=== PATIENT | female | born 1980 | race African-American/Black ===

== ENCOUNTER 2017-07-02 00:42 | Emergency (ER) | payer MEDICAID ==
--- NOTE | 2017-07-02 02:53 | ER Document Report ---
ED General - General Chief Complaint: Ear Pain Stated Complaint: WEAKNESS,SHORTNESS OF BREATH Time Seen by Provider: 07/02/17 02:41 Notes: Patient is a 36-year-old female who presents with complaint of 1 week of body aches, chills, sweats. She says she has felt weak. She also has had some pain beneath both shoulder blades. No pain into her abdomen. No pain into her chest. No vomiting. No diarrhea. Patient also complains that yesterday she had some lumps behind her ears. These have since improved. No sore throat. No runny nose cough or congestion. She does not remember any recent tick bites. No dysuria. No other complaints at this time. TRAVEL OUTSIDE OF THE [place] IN LAST 30 DAYS: No - Related Data Allergies/Adverse Reactions: No Known Allergies Allergy (Verified 07/02/17 01:11) Past Medical History - Social History Smoking Status: Never Smoker Frequency of alcohol use: None Drug Abuse: None Family History: CAD, DM, Hypertension - Past Medical History Cardiac Medical History: Reports: Hx Hypertension Renal/ Medical History: Denies: Hx Peritoneal Dialysis Past Surgical History: Reports: Hx Orthopedic Surgery - Immunizations Hx Diphtheria, Pertussis, Tetanus Vaccination: Yes Review of Systems - Review of Systems Notes: My Normal Review Basic REVIEW OF SYSTEMS: CONSTITUTIONAL : subjective fevers. EENT: Denies eye, ear, throat, or mouth pain or symptoms. Denies nasal or sinus congestion. CARDIOVASCULAR: Denies chest pain. RESPIRATORY: Denies cough, cold, or chest congestion. Denies shortness of breath, difficulty breathing, or wheezing. GASTROINTESTINAL: Denies abdominal pain. Denies nausea, vomiting, or diarrhea. Denies constipation. Last BM: GENITOURINARY: Denies difficulty urinating, painful urination, burning, frequency, or blood in urine. MUSCULOSKELETAL: Body aches SKIN: Denies rash or skin lesions. NEUROLOGICAL: Denies altered mental status or loss of consciousness. Denies headache. Denies weakness or paralysis or loss of use of either side. Denies problems with gait or speech. Denies sensory or motor loss. ALL OTHER SYSTEMS REVIEWED AND NEGATIVE. Physical Exam - Vital signs Vitals: Temp Pulse Resp BP Pulse Ox 98.7 F 78 20 132/95 H 96 07/02/17 01:11 07/02/17 01:11 07/02/17 01:11 07/02/17 01:11 07/02/17 01:11 - Notes Notes: General Appearance: Well nourished, alert, cooperative, no acute distress, no obvious discomfort. Well-appearing. Vitals: reviewed, See vital signs table. Head: no swelling or tenderness to the head Eyes: PERRL, EOMI, Conjuctiva clear Mouth: No decreasd moisture Throat: No tonsillar inflammation, No airway obstruction, No lymphadenopathy Ears: Normal-appearing tympanic membranes bilaterally. Small amount of lymphadenopathy behind left ear. Neck: Supple, no neck tenderness, No thyromegaly Lungs: No wheezing, No rales, No rhonci, No accessory muscle use, good air exchange bilaterally. Heart: Normal rate, Regular rythm, No murmur, no rub Back: Minimal pain to palpation below the left scapula. Remainder of back is nontender. No rashes. Abdomen: Normal BS, soft, No rigidity, No abdominal tenderness, No guarding, no rebound, no abdominal masses, no organomegaly Extremities: strength 5/5 in all extremities, good pulses in all extremities, no swelling or tenderness in the extremities, no edema. Skin: warm, dry, appropriate color, no rash Neuro: speech clear, oriented x 3, normal affect, responds appropriately to questions. Course - Re-evaluation Re-evalutation: 07/02/17 06:30 I do not know the exact cause of the patient's symptoms. She does have like symptoms without any exact cause in the middle of summer. I will place her on doxycycline in case there is underlying recommended spotted fever. Titers have been sent out. I informed her of this and gave her the culture callback number to find out her results. Encouraged her return to ER if she has worsening or symptoms, high fevers, vomiting, or she feels unwell. Patient agrees with plan will be discharged home. Dictation of this chart was performed using voice recognition software; therefore, there may be some unintended grammatical errors. - Vital Signs Vital signs: Temp Pulse Resp BP Pulse Ox 98.7 F 89 18 131/84 H 98 07/02/17 01:11 07/02/17 04:36 07/02/17 04:36 07/02/17 04:36 07/02/17 04:36 - Laboratory Laboratory results interpreted by me: 07/02/17 03:30 Urine Protein 100 H Urine Blood SMALL H Urine Ascorbic Acid 20 H Discharge - Discharge Clinical Impression: Flu-like symptoms Condition: Good Disposition: HOME, SELF-CARE Additional Instructions: We are starting you on an antibiotic. The antibiotic is called Doxycyline. Please take it with food so it doesn't irritate your stomach. Please follow up with a doctor in 3 days for reevaluation. Please do not go out into the sun often as the antibiotic can make your skin very sensitive to the skin. You Rayne Spotted Fever test results typically take 2-3 days to call back. please call [phone] for the results. Return to the ER immediately if you have worsening pain, fevers, vomiting, or feel unwell. Prescriptions: Doxycycline Hyclate 100 mg PO BID #14 capsule
[2017-07-02 03:50] LABS: APPEARANCE,URINE SLIGHTLY-CLOUDY; BILIRUBIN,URINE NEGATIVE (NEGATIVE); GLUCOSE, URINE NEGATIVE (NEGATIVE); KETONES,URINE NEGATIVE (NEGATIVE); LEUKOCYTE ESTERASE,URINE NEGATIVE (NEGATIVE); NITRITE,URINE NEGATIVE (NEGATIVE); PROTEIN,URINE 100 mg/dL (NEGATIVE); URINE SPECIFIC GRAVITY 1.039; UROBILINOGEN,URINE NEGATIVE mg/dL (<2.0)
[2017-07-02 04:37] VITALS: BP 131/84
[2017-07-04 10:04] LABS: ROCKY MTN SPOTTED FEV IGG EIA Negative (Negative)
== END 2017-07-02 04:36 | disposition home or self-care (01) ==
LOC: ER 00:42
DX: R68.83 Chills (without fever) (principal); R61 Generalized hyperhidrosis; R53.1 Weakness; M54.89 Other dorsalgia; R59.0 Localized enlarged lymph nodes; I10 Essential (primary) hypertension
CPT/HCPCS: 36415; 81001; 81025; 86757; 99283

== ENCOUNTER 2018-11-30 11:19 | Emergency (ER) | payer MEDICAID ==
--- NOTE | 2018-11-30 11:45 | ER Document Report ---
ED Medical Screen (RME) - General Chief Complaint: Headache Stated Complaint: HEADACHE Time Seen by Provider: 11/30/18 11:44 Mode of Arrival: Ambulatory Information source: Patient Notes: This is a 38-year-old female that presents to the emergency room with sharp stabbing headache for the past month associated with feeling off balance. Patient denies any fever, chills, neck stiffness. She denies any recent illnesses. She denies any focal motor weakness. She is on no medicines and no allergies to medicines. TRAVEL OUTSIDE OF THE [place] IN LAST 30 DAYS: No - Related Data Allergies/Adverse Reactions: No Known Allergies Allergy (Verified 11/30/18 11:20) Past Medical History - Social History Chew tobacco use (# tins/day): No Frequency of alcohol use: Occasional Drug Abuse: None - Past Medical History Cardiac Medical History: Reports: Hx Hypertension Renal/ Medical History: Denies: Hx Peritoneal Dialysis Past Surgical History: Reports: Hx Orthopedic Surgery - Immunizations Hx Diphtheria, Pertussis, Tetanus Vaccination: Yes Physical Exam - Vital signs Vitals: Temp Pulse Resp BP Pulse Ox 98.2 F 73 20 141/83 H 97 11/30/18 11:37 11/30/18 11:37 11/30/18 11:37 11/30/18 11:37 11/30/18 11:37 Course - Vital Signs Vital signs: Temp Pulse Resp BP Pulse Ox 98.2 F 73 20 141/83 H 97 11/30/18 11:37 11/30/18 11:37 11/30/18 11:37 11/30/18 11:37 11/30/18 11:37
[2018-11-30 12:01] LABS: ABSOLUTE EOSINOPHILS # (AUTO) 0.1 10^3/uL (0.0-0.6); ABSOLUTE LYMPHOCYTES (AUTO) 1.5 10^3/uL (0.5-4.7); ABSOLUTE MONOCYTES (AUTO) 0.5 10^3/uL (0.1-1.4); ABSOLUTE NEUT (AUTO) 2.5 10^3/uL (1.7-8.2); BASOPHILS % (AUTO) 0.7 % (0-2); EOSINOPHILS % (AUTO) 1.8 % (0-6); HEMATOCRIT 39.3 % (36.0-47.0); HEMOGLOBIN 13.1 g/dL (12.0-15.5); LYMPHOCYTES % (AUTO) 33.3 % (13-45); MEAN CORPUSCULAR HEMOGLOBIN 27.3 pg (27.0-33.4); MEAN CORPUSCULAR HGB CONC 33.3 g/dL (32.0-36.0); MEAN CORPUSCULAR VOLUME 82 fl (80-97); MONOCYTES % (AUTO) 9.8 % (3-13); PLATELET COUNT 292 10^3/uL (150-450); SEGMENTED NEUTROPHILS % (AUTO) 54.4 % (42-78); TOTAL CELLS COUNTED % (AUTO) 100 %; WHITE BLOOD COUNT 4.6 10^3/uL (4.0-10.5)
--- NOTE | 2018-11-30 12:29 | RADIOLOGY REPORT (SQ) ---
EXAM DESCRIPTION: CT HEAD WITHOUT COMPLETED DATE/TIME: 11/30/2018 12:15 pm REASON FOR STUDY: loredo COMPARISON: None. TECHNIQUE: Axial images acquired through the brain without intravenous contrast. Images reviewed wi th bone, brain and subdural windows. Additional sagittal and coronal reconstructions were generated. Images stored on PACS. All CT scanners at this facility use dose modulation, iterative reconstruction, and/or weight based d osing when appropriate to reduce radiation dose to as low as reasonably achievable (ALARA). [facility]: Dose Right [facility]: CareDose [facility]: Dose Right [facility]: Teradose 4D [facility]: Anda RADIATION DOSE: CT Rad equipment meets quality standard of care and radiation dose reduction techniq ues were employed. CTDIvol: 53.2 mGy. DLP: 1017 mGy-cm. LIMITATIONS: None. FINDINGS: VENTRICLES: Normal size and contour. The cisterns are patent appear CEREBRUM: No masses. No hemorrhage. No midline shift. No evidence for acute infarction. Normal gra y/white matter differentiation. No areas of low density in the white matter. CEREBELLUM: No masses. No hemorrhage. No alteration of density. No evidence for acute infarction. EXTRAAXIAL SPACES: No fluid collections. No masses. ORBITS AND GLOBE: No intra- or extraconal masses. Normal contour of globe without masses. CALVARIUM: No fracture. PARANASAL SINUSES: No fluid or mucosal thickening. SOFT TISSUES: No mass or hematoma. OTHER: Prominent adenoidal tissue. IMPRESSION: 1. No acute intracranial abnormality. 2. Additional imaging may be helpful if symptoms are persistent and felt clinically indicated. 3. Prominent adenoidal tissue. EVIDENCE OF ACUTE STROKE: NO. COMMENT: Quality ID # [id number]: Final reports with documentation of one or more dose reduction techniques (e.g., Automated exposure control, adjustment of the mA and/or kV according to patient size, use of iterative reconstruction technique) TECHNICAL DOCUMENTATION: JOB ID: [id number] [employer]- All Rights Reserved Reading location - IP/workstation name: [email or web address]
[2018-11-30 12:30] LABS: ALANINE AMINOTRANSFERASE 35 U/L (9-52); ALBUMIN 3.7 g/dL (3.5-5.0); ALKALINE PHOSPHATASE 71 U/L (38-126); ANION GAP 5 (5-19); ASPARTATE AMINO TRANSFERASE 20 U/L (14-36); BILIRUBIN,DIRECT 0.1 mg/dL (0.0-0.4); BILIRUBIN,TOTAL 0.3 mg/dL (0.2-1.3); BLOOD UREA NITROGEN 9 mg/dL (7-20); CALCIUM 9.1 mg/dL (8.4-10.2); CARBON DIOXIDE 30 mmol/L (22-30); CHLORIDE 104 mmol/L (98-107); GLUCOSE 109 mg/dL (75-110); POTASSIUM 4.1 mmol/L (3.6-5.0); SODIUM 138.9 mmol/L (137-145); TOTAL PROTEIN 6.6 g/dL (6.3-8.2)
[2018-11-30] MEDS ORDERED: PROCHLORPERAZINE EDISYLATE INJ 10 MG/2 ML VIAL IV ONE (14:47)
[2018-11-30] MEDS ORDERED: KETOROLAC TROMETHAMINE INJ/PF 30 MG/1 ML SDV IV ONE (14:47)
[2018-11-30] MEDS ORDERED: DIPHENHYDRAMINE HCL 50 MG/ML VIAL IV ONE (14:47)
--- NOTE | 2018-11-30 14:50 | ER Document Report ---
ED General - General Chief Complaint: Headache Stated Complaint: HEADACHE Time Seen by Provider: 11/30/18 11:44 Primary Care Provider: FLO JUSTICE DO [Primary Care Provider] - Follow up as needed Mode of Arrival: Ambulatory TRAVEL OUTSIDE OF THE [place] IN LAST 30 DAYS: No - HPI Notes: Patient is a 38-year-old female with a past medical history who presents to the emergency department complaining of right-sided headache intermittently over the last month. Patient states that it feels like a tightness and a pulling sensation to the right side of her head. Patient does not recall any injury precipitating her headache initially. She is able to eat and drink without difficulties. She is urinating normally and having normal bowel movements. Pat ient states that on occasion she will have dizziness associated primarily with movement of her head. Patient states that her headache has improved throughout her stay, but is still lingering. Denies any fever, head injury, neck pain, changes in vision/speech/mentation/hearing, URI, sore throat, chest pain, palpitations, syncope, cough, shortness of breath, wheeze, dyspnea, abdominal pain, nausea/vomiting/diarrhea, urinary retention, dysuria, hematuria, loss of control of bowel or bladder, numbness/tingling, muscle paralysis/weakness, or rash. - Related Data Allergies/Adverse Reactions: No Known Allergies Allergy (Verified 11/30/18 11:20) Past Medical History - General Information source: Patient - Social History Smoking Status: Current Every Day Smoker Chew tobacco use (# tins/day): No Frequency of alcohol use: Occasional Drug Abuse: None Family History: CAD, DM, Hypertension Patient has suicidal ideation: No Patient has homicidal ideation: No - Past Medical History Cardiac Medical History: Reports: Hx Hypertension Renal/ Medical History: Denies: Hx Peritoneal Dialysis Past Surgical History: Reports: Hx Orthopedic Surgery - Immunizations Hx Diphtheria, Pertussis, Tetanus Vaccination: Yes Review of Systems - Review of Systems -: Yes All other systems reviewed and negative Physical Exam - Vital signs Vitals: Temp Pulse Resp BP Pulse Ox 98.2 F 73 20 141/83 H 97 11/30/18 11:37 11/30/18 11:37 11/30/18 11:37 11/30/18 11:37 11/30/18 11:37 - Notes Notes: PHYSICAL EXAMINATION: GENERAL: Well-appearing, well-nourished and in no acute distress. A&Ox4. Answers questions appropriately. HEAD: Atraumatic, normocephalic. Non-tender. EYES: Pupils equal round and reactive to light, extraocular movements intact, sclera anicteric, conjunctiva are normal. No nystagmus. vis crook intact. ENT: EAC clear b/l. TM's intact b/l without erythema, fluid, or perforation. Nares patent and without discharge. oropharynx clear without exudates. No to nsilar hypertrophy or erythema. Moist mucous membranes. No sinus tenderness. NECK: Normal range of motion, supple without lymphadenopathy. No rigidity/meningismus. No midline tenderness. LUNGS: Breath sounds clear to auscultation bilaterally and equal. No wheezes rales or rhonchi. HEART: Regular rate and rhythm without murmurs, rubs, gallops. ABDOMEN: Soft, nontender, nondistended abdomen. No guarding, no rebound. Normal bowel sounds present. No CVA tenderness bilaterally. Musculoskeletal: Ext's b/l: FROM to passive/active. Strength 5+/5. No deficits noted. No bony tenderness of extremities. Extremities: No cyanosis, clubbing, or edema b/l. Peripheral pulses 2+. Capil remington refill less than 2 seconds. NEUROLOGICAL: NIH 0. GCS 15. Cranial nerves grossly intact. Normal speech, normal gait. Normal sensory, motor exams. Reflexes 2+ b/l. BABATUNDE's negative. Pronator drift negative. Heel/liz, finger/nose wnl. Rhomberg neg. I watched the patient walk to the bathroom 15yrs away and back again, no problems. PSYCH: Normal mood, normal affect. SKIN: Warm, Dry, normal turgor, no rashes or lesions noted. Course - Re-evaluation Re-evalutation: 11/30/18 16:01 Patient is an afebrile, well-hydrated, 38-year-old female who presents to the ED with a headache, suspect tension. Vitals are acceptable without any significant tachycardia, tachypnea, or hypoxia. PE is otherwise unremarkable for any focal neurological deficits. NIH 0, GCS 15, cranial nerves grossly intact. No labs or imaging warranted at this time based on H&P. Patient was given Toradol, Compazine, and benadryl which has resolved her headache. Patient states that she is feeling much better and would like to go home. She is nontoxic-appearing and is tolerating p.o. without any difficulties. Low suspicion for any acute glaucoma, temporal arteritis, meningitis, intracranial hemorrhage, ischemic stroke, or fracture at this time. Patient is aware that this condition can change from initial presentation and that she needs to monitor symptoms closely for any acute changes. Recheck with your PCM/neurologist in 3-5 days. Return to the ED with any worsening/concerning symptoms otherwise as reviewed in discharge. Patient is in agreement. - Vital Signs Vital signs: Temp Pulse Resp BP Pulse Ox 98.2 F 87 16 140/90 H 99 11/30/18 11:37 11/30/18 15:03 11/30/18 15:03 11/30/18 15:03 11/30/18 15:03 - Laboratory Result Diagrams: 11/30/18 11:50 11/30/18 11:50 Discharge - Discharge Clinical Impression: Headache Qualifiers: Headache type: tension-type Headache chronicity pattern: acute headache Intractability: not intractable Qualified Code(s): G44.209 - Tension-type headache, unspecified, not intractable Condition: Stable Disposition: HOME, SELF-CARE Instructions: Headache ([facility]) Additional Instructions: Rest, Ice/cool compress Tylenol/ibuprofen as needed Light stretches daily Strength exercises as able Moist heat and massage may help F/u with your PCP in 2-3 days for a recheck Consider consult(s) with Neurology for ongoing/worsening symptoms Return to the ED with any worsening symptoms and/or development of fever, headache, changes in behavior/mentation/vision/speech, chest pain, palpitations, syncope, shortness of breath, trouble breathing, abdominal pain, n/v/d, blood in stool/urine, loss of control of bowel/bladder, urinary retention, muscle weakness/paralysis, saddle anesthesia, numbness/tingling, or other worsening symptoms that are concerning to you. Forms: Elevated Blood Pressure Referrals: FLO JUSTICE DO [Primary Care Provider] - Follow up in 3-5 days
[2018-11-30 15:03] VITALS: BP 140/90
== END 2018-11-30 16:19 | disposition home or self-care (01) ==
LOC: ER 11:19
DX: G44.209 Tension-type headache, unspecified, not intractable (principal); F17.200 Nicotine dependence, unspecified, uncomplicated; I10 Essential (primary) hypertension
CPT/HCPCS: 99284; 96374; 96375; 36415; 84702; 85025; 80053; 70450; J1200; J1885; J0780

== ENCOUNTER 2019-04-28 08:48 | Emergency (ER) | payer MEDICAID ==
[2019-04-28 10:26] LABS: ALANINE AMINOTRANSFERASE 28 U/L (9-52); ALBUMIN 3.7 g/dL (3.5-5.0); ALKALINE PHOSPHATASE 69 U/L (38-126); ANION GAP 8 (5-19); ASPARTATE AMINO TRANSFERASE 21 U/L (14-36); BILIRUBIN,DIRECT 0.2 mg/dL (0.0-0.4); BILIRUBIN,TOTAL 0.5 mg/dL (0.2-1.3); BLOOD UREA NITROGEN 6 mg/dL (7-20); CALCIUM 9.4 mg/dL (8.4-10.2); CARBON DIOXIDE 26 mmol/L (22-30); CHLORIDE 106 mmol/L (98-107); GLUCOSE 128 mg/dL (75-110); POTASSIUM 3.5 mmol/L (3.6-5.0); SODIUM 140.2 mmol/L (137-145); TOTAL PROTEIN 6.7 g/dL (6.3-8.2)
[2019-04-28 10:32] LABS: ABSOLUTE LYMPHOCYTES (AUTO) 1.1 10^3/uL (0.5-4.7); ABSOLUTE MONOCYTES (AUTO) 0.5 10^3/uL (0.1-1.4); ABSOLUTE NEUT (AUTO) 3.7 10^3/uL (1.7-8.2); BASOPHILS % (AUTO) 0.6 % (0-2); EOSINOPHILS % (AUTO) 0.2 % (0-6); HEMATOCRIT 39.1 % (36.0-47.0); HEMOGLOBIN 12.8 g/dL (12.0-15.5); MEAN CORPUSCULAR HEMOGLOBIN 26.1 pg (27.0-33.4); MEAN CORPUSCULAR HGB CONC 32.7 g/dL (32.0-36.0); MEAN CORPUSCULAR VOLUME 80 fl (80-97); MONOCYTES % (AUTO) 9.3 % (3-13); PLATELET COUNT 290 10^3/uL (150-450); RED BLOOD COUNT 4.91 10^6/uL (3.72-5.28); RED CELL DISTRIBUTION WIDTH 14.4 % (11.5-14.0); SEGMENTED NEUTROPHILS % (AUTO) 69.9 % (42-78); TOTAL CELLS COUNTED % (AUTO) 100 %; WHITE BLOOD COUNT 5.3 10^3/uL (4.0-10.5)
--- NOTE | 2019-04-28 12:36 | ER Document Report ---
ED General - General Chief Complaint: Leg Swelling Stated Complaint: SWOLLEN LEFT LEG/LEFT ARM PAIN Time Seen by Provider: 04/28/19 11:40 Notes: Patient is a 38-year-old female presents to the emergency department with a chief complaint of left calf pain and left lower extremity swelling. Patient states that yesterday she was at home when she noticed her left lower extremity was more swollen than the right. Patient states she did have a 3-hour car ride last Friday to [place] but that they did stop to get out of the car multiple times. Patient denies trauma or fall. Patient states that she has left calf pain as well as swelling in her thigh. Patient denies a history of blood clots. Patient states she does not take control pills or hormones. Patient is a 1 pack a day smoker. Patient states she is also had intermittent shortness of breath that occurs "randomly." She also reports intermittent chest pressure and discomfort. Patient denies recent cough, cold, fever. TRAVEL OUTSIDE OF THE [place] IN LAST 30 DAYS: No - Related Data Allergies/Adverse Reactions: No Known Allergies Allergy (Verified 04/28/19 08:56) Past Medical History - General Information source: Patient - Social History Smoking Status: Current Every Day Smoker Frequency of alcohol use: Occasional Drug Abuse: None Family History: CAD, DM, Hypertension Patient has suicidal ideation: No Patient has homicidal ideation: No - Past Medical History Cardiac Medical History: Reports: Hx Hypertension Pulmonary Medical History: Reports: None EENT Medical History: Reports: None Neurological Medical History: Reports: None Endocrine Medical History: Reports: None Renal/ Medical History: Reports: None. Denies: Hx Peritoneal Dialysis Malignancy Medical History: Reports: None GI Medical History: Reports: None Musculoskeletal Medical History: Reports None Skin Medical History: Reports None Psychiatric Medical History: Reports: None Traumatic Medical History: Reports: None Infectious Medical History: Reports: None Surgical Hx: Negative Past Surgical History: Reports: Hx Orthopedic Surgery - Immunizations Hx Diphtheria, Pertussis, Tetanus Vaccination: Yes Review of Systems - Review of Systems Constitutional: No symptoms reported EENT: No symptoms reported Cardiovascular: See HPI Respiratory: See HPI Gastrointestinal: No symptoms reported Genitourinary: No symptoms reported Female Genitourinary: No symptoms reported Musculoskeletal: See HPI Skin: No symptoms reported Hematologic/Lymphatic: No symptoms reported Neurological/Psychological: No symptoms reported Physical Exam - Vital signs Vitals: Temp Pulse Resp BP Pulse Ox 98.2 F 76 18 132/94 H 96 04/28/19 09:09 04/28/19 09:09 04/28/19 09:09 04/28/19 09:09 04/28/19 09:09 Interpretation: Normal - Notes Notes: GENERAL: Well-appearing, well-nourished and in no acute distress. HEAD: Atraumatic, normocephalic. EYES: Pupils equal round and reactive to light, extraocular movements intact, sclera anicteric, conjunctiva are normal. ENT: Nares patent, oropharynx clear without exudates. Moist mucous membranes. NECK: Normal range of motion, supple without lymphadenopathy or JVD. LUNGS: Breath sounds clear to auscultation bilaterally and equal. No wheezes rales or rhonchi. HEART: Regular rate and rhythm without murmurs, rubs or gallops. Reproducible chest pain throughout. ABDOMEN: Soft, obese, nontender, normoactive bowel sounds. No guarding, no rebound. No masses appreciated. BACK: No cervical, thoracic, lumbar midline tenderness. No saddle anesthesia, normal distal neurovascular exam. GENITOURINARY: Deferred. EXTREMITIES: Normal range of motion, no clubbing or cyanosis. Patient does have small amount of left calf swelling when compared to the right. No erythema, no pitting edema. Strong bilateral dorsalis pedis pulses. NEUROLOGICAL: Cranial nerves II through XII grossly intact. Normal speech, normal gait. PSYCH: Normal mood, normal affect. SKIN: Warm, Dry, normal turgor, no rashes or lesions noted. Course - Re-evaluation Re-evalutation: 04/28/19 12:42 Upon initial assessment patient is resting comfortably on stretcher. Patient's lab work that was ordered in triage is unremarkable with a negative d-dimer. We will add a left lower extremity ultrasound to rule out blood clot, chest x-ray due to the chest pain and shortness of breath as well as a troponin. Patient is in agreement with this plan and denies questions or concerns at this time. 04/28/19 16:10 Patient's doppler ultrasound of the left lower extremity was unofficially negative. I did make the patient aware of this finding as well as her negative labs to include negative d-dimer and troponin, EKG, chest x-ray results. Pat flakito's potassium slightly low at 3.5, upon entering the room patient was eating a banana and a salad. I did inform patient of the slightly low potassium. Informed patient to increase her intake of potassium high foods including green leafy vegetables, bananas and a moderate amount. Patient verbalized understanding. Did explain to the patient to return for any worsening signs or symptoms to include chest pain, shortness of breath, dizziness, passing out or lightheadedness. Patient heart rate is 77 and a sinus rhythm on the monitor with a respiratory rate of 18 and oxygen level of 99% on room air. I do not suspect pulmonary embolism as the patient is not tachycardic, tachypneic, hypoxic and had a negative d-dimer. - Vital Signs Vital signs: Temp Pulse Resp BP Pulse Ox 98.4 F 76 13 141/95 H 97 04/28/19 16:23 04/28/19 09:09 04/28/19 16:01 04/28/19 16:01 04/28/19 16:01 - Laboratory Result Diagrams: 04/28/19 09:45 04/28/19 09:45 Laboratory results interpreted by me: 04/28/19 04/28/19 09:45 09:45 MCH 26.1 L RDW 14.4 H Potassium 3.5 L BUN 6 L Glucose 128 H - Diagnostic Test Radiology reviewed: Reports reviewed - EKG Interpretation by Me Additional EKG results interpreted by me: 04/28/19 12:15 His EKG shows a sinus rhythm with a heart rate of 77. Patient's IL interval is 136, QT is 364, QTc is 412. Patient has a left axis deviation, no ST segment changes in consecutive leads. Discharge - Discharge Clinical Impression: Chest wall pain, Pain in left lower leg, Left leg swelling Condition: Stable Disposition: HOME, SELF-CARE Additional Instructions: Today you were seen in the emergency department for chest pain and swelling to the left leg. The Doppler read of your left lower extremity was unofficially read as negative. There did not appear to be a blood clot. We did check your heart to include an EKG, chest x-ray, blood work without any abnormality. Your potassium was on the the slightly lower end of normal. You can incorporate more potassium into your blood work to include green leafy vegetables, bananas. Please rest over the next 24 to 48 hours and elevate the left lower extremity. Return to the emergency department for chest pain, shortness of breath, worsen ing swelling or discoloration of the left leg and numbness and tingling. Your blood pressure reading today was in the 140s over 90s. Please follow-up with your primary care physician for a repeat follow-up of this blood pressure as you do not want to have it uncontrolled or continue to elevate. Chest Pain of Unclear Cause The exact cause of your chest pain isn't clear. Fortunately, there is no evidence of a dangerous medical condition. Further testing may be required to find the source of the pain. Most often, we find that this pain is coming from the chest wall -- the muscles or rib joints in the chest. But chest pain can come from the lung and lung lining, the esophagus, the heart valves or heart lining, and even the stomach or gallbladder. Rest. Eat lightly until the pain is gone. We may prescribe medicine for pain and inflammation. You should call the physician immediately if the pain radiates to the shoulder, jaw or arms; if you start to run a fever or develop a cough; or if you develop shortness of breath, or other new or alarming symptoms. Chest Wall Pain Your chest pain has been diagnosed as coming from the chest wall. This is often caused by straining the muscles or joints in the chest during physical activity, direct trauma, coughing, or vigorous vomiting. Persons with arthritis are especially prone to this type of pain, due to inflammation of the cartilage joints near the breast bone. Occasionally, no cause can be found. Rest from strenuous physical activity. This kind of chest pain is usually made worse by movement of the chest. Depending on the symptoms, we may prescribe medicine for pain, muscle relaxation, and anti-inflammatory effects. If the pain is new, and seems to be due to muscle strain, cold packs can help. Otherwise, apply gentle warmth to the painful area for 15 minutes every hour or two. You should contact the doctor immediately if things change. Further evaluation is needed if you develop a fever or cough, if the nature of the pain changes, or if you become short of breath. Forms: Return to Work, Smoking Cessation Education, Elevated Blood Pressure
--- NOTE | 2019-04-28 13:39 | RADIOLOGY REPORT (SQ) ---
EXAM DESCRIPTION: CHEST 2 VIEWS COMPLETED DATE/TIME: 04/28/2019 1:26 pm REASON FOR STUDY: chest pain, shortness of breath COMPARISON: None. EXAM PARAMETERS: NUMBER OF VIEWS: two views TECHNIQUE: Digital Frontal and Lateral radiographic views of the chest acquired. RADIATION DOSE: NA LIMITATIONS: none FINDINGS: LUNGS AND PLEURA: No opacities, masses or pneumothorax. No pleural effusion. MEDIASTINUM AND HILAR STRUCTURES: No masses or contour abnormalities. HEART AND VASCULAR STRUCTURES: Heart normal size. No evidence for failure. BONES: No acute findings. HARDWARE: None in the chest. OTHER: No other significant finding. IMPRESSION: NO ACUTE RADIOGRAPHIC FINDING IN THE CHEST. TECHNICAL DOCUMENTATION: JOB ID: [id number] [employer]- All Rights Reserved Reading location - IP/workstation name: [email or web address]
[2019-04-28] MEDS ORDERED: IBUPROFEN 600 MG TABLET PO ONE (14:23)
[2019-04-28 16:24] VITALS: BP 141/95
--- NOTE | 2019-04-28 17:04 | XCELERA REPORT ---
[address] [facility] [id number] Lower Extremity Venous Evaluation Procedure: Color flow and duplex imaging bilaterally of the veins of the lower extremities as well as the Common Femoral veins. Right Sided Venous Evaluation Normal vessel filling wall to wall, compression and augmentation as well as Colour flow down to the infrageniculate veins. Left Sided Venous Evaluation Normal vessel filling wall to wall, compression and augmentation as well as Colour flow down to the infrageniculate veins. Interpretation Summary No duplex evidence of DVT or obstruction in the bilateral lower extremities. Name: PABLITO LEON Age: 38 yrs Gender: Female : 1980 Patient Status: Emergency Patient Location: ER Study Date: 04/28/2019 02:25 PM Reason For Study: left leg pain, left calf swelling Ordering Physician: SADIE RATLIFF Performed By: Sophia Yap : SADIE RATLIFF > Moiz Lebron
--- NOTE | 2019-04-28 20:43 | EKG REPORT ---
SEVERITY:- BORDERLINE ECG - SINUS RHYTHM BORDERLINE T WAVE ABNORMALITIES : Confirmed by: Monika Rutledge MD 28-Apr-2019 20:42:35
== END 2019-04-28 16:30 | disposition home or self-care (01) ==
LOC: ER 08:48
DX: R07.89 Other chest pain (principal); M79.605 Pain in left leg; M79.89 Other specified soft tissue disorders; R06.02 Shortness of breath; R07.9 Chest pain, unspecified; F17.200 Nicotine dependence, unspecified, uncomplicated; I10 Essential (primary) hypertension
CPT/HCPCS: 93005; 99284; 36415; 85025; 80053; 84484; 85379; 93971 ×2; 71046; 93010; J3490

== ENCOUNTER 2019-05-01 08:18 | Emergency (ER) | payer MEDICAID ==
--- NOTE | 2019-05-01 09:24 | ER Document Report ---
ED Medical Screen (RME) - General Chief Complaint: Leg Pain Stated Complaint: LEG PAIN Time Seen by Provider: 05/01/19 09:13 Mode of Arrival: Ambulatory Information source: Patient Notes: Patient is a 38-year-old female presenting to the emergency department with complaints of left leg pain and swelling as well is a left upper arm tightness, pain and intermittent tingling. She reports that she was seen here for the same complaints 3 days ago and had a negative work-up including cardiac enzymes and venous Doppler. She reports the pain in her leg has actually improved. She has never had a DVT or PE in her past. She currently denies any chest pain but states that over the last few days she has had intermittent left-sided chest pressure. Exam: Heart sounds S1-S2 present with no ectopy noted. Lung sounds clear and equal bilaterally. No swelling or erythema noted to left lower extremity. Records reviewed from visit on 04/28/2019, patient had a negative troponin, negative d-dimer and a negative venous Doppler study. I have greeted and performed a rapid initial assessment of this patient. A comprehensive ED assessment and evaluation of the patient, analysis of test results and completion of the medical decision making process will be conducted by additional ED providers. I have specifically instructed the patient or family members with the patient to immediately return to any nursing staff should anything change in the patient's condition or with their chief complaint. This medical record was dictated with voice recognizing software. There may be grammatical, syntax errors that are unintended. TRAVEL OUTSIDE OF THE [place] IN LAST 30 DAYS: No - Related Data Allergies/Adverse Reactions: No Known Allergies Allergy (Verified 05/01/19 08:19) Past Medical History - Social History Frequency of alcohol use: Social Drug Abuse: None - Past Medical History Cardiac Medical History: Reports: Hx Hypertension Renal/ Medical History: Denies: Hx Peritoneal Dialysis Past Surgical History: Reports: Hx Orthopedic Surgery - Immunizations Hx Diphtheria, Pertussis, Tetanus Vaccination: Yes Physical Exam - Vital signs Vitals: Temp Pulse Resp BP Pulse Ox 98.4 F 85 18 153/89 H 95 05/01/19 08:19 05/01/19 08:19 05/01/19 08:19 05/01/19 08:19 05/01/19 08:19 Course - Vital Signs Vital signs: Temp Pulse Resp BP Pulse Ox 98.4 F 85 18 153/89 H 95 05/01/19 08:19 05/01/19 08:19 05/01/19 08:19 05/01/19 08:19 05/01/19 08:19
[2019-05-01 09:56] LABS: ABSOLUTE BASOPHILS # (AUTO) 0.1 10^3/uL (0.0-0.2); ABSOLUTE LYMPHOCYTES (AUTO) 1.2 10^3/uL (0.5-4.7); ABSOLUTE MONOCYTES (AUTO) 0.4 10^3/uL (0.1-1.4); ABSOLUTE NEUT (AUTO) 4.1 10^3/uL (1.7-8.2); EOSINOPHILS % (AUTO) 0.3 % (0-6); HEMATOCRIT 39.9 % (36.0-47.0); HEMOGLOBIN 13.3 g/dL (12.0-15.5); LYMPHOCYTES % (AUTO) 20.9 % (13-45); MEAN CORPUSCULAR HEMOGLOBIN 26.6 pg (27.0-33.4); MEAN CORPUSCULAR HGB CONC 33.2 g/dL (32.0-36.0); MEAN CORPUSCULAR VOLUME 80 fl (80-97); MONOCYTES % (AUTO) 6.4 % (3-13); PLATELET COUNT 276 10^3/uL (150-450); RED BLOOD COUNT 4.98 10^6/uL (3.72-5.28); RED CELL DISTRIBUTION WIDTH 14.6 % (11.5-14.0); SEGMENTED NEUTROPHILS % (AUTO) 71.4 % (42-78); TOTAL CELLS COUNTED % (AUTO) 100 %; WHITE BLOOD COUNT 5.8 10^3/uL (4.0-10.5)
--- NOTE | 2019-05-01 10:16 | RADIOLOGY REPORT (SQ) ---
EXAM DESCRIPTION: CHEST SINGLE VIEW COMPLETED DATE/TIME: 05/01/2019 9:55 am REASON FOR STUDY: left upper ext tightness/tingling COMPARISON: 04/28/2019 EXAM PARAMETERS: NUMBER OF VIEWS: One view. TECHNIQUE: Single frontal radiographic view of the chest acquired. RADIATION DOSE: NA LIMITATIONS: None. FINDINGS: LUNGS AND PLEURA: No opacities, masses or pneumothorax. No pleural effusion. MEDIASTINUM AND HILAR STRUCTURES: No masses. Contour normal. HEART AND VASCULAR STRUCTURES: Heart normal in size. Normal vasculature. BONES: No acute findings. HARDWARE: None in the chest. OTHER: No other significant finding. IMPRESSION: NO ACUTE RADIOGRAPHIC FINDING IN THE CHEST. TECHNICAL DOCUMENTATION: JOB ID: [id number] [employer]- All Rights Reserved Reading location - IP/workstation name: [email or web address]
[2019-05-01 10:22] LABS: ALANINE AMINOTRANSFERASE 24 U/L (9-52); ALBUMIN 3.9 g/dL (3.5-5.0); ALKALINE PHOSPHATASE 68 U/L (38-126); ANION GAP 7 (5-19); ASPARTATE AMINO TRANSFERASE 16 U/L (14-36); BILIRUBIN,DIRECT 0.2 mg/dL (0.0-0.4); BILIRUBIN,TOTAL 0.4 mg/dL (0.2-1.3); BLOOD UREA NITROGEN 10 mg/dL (7-20); CALCIUM 9.5 mg/dL (8.4-10.2); CARBON DIOXIDE 27 mmol/L (22-30); CHLORIDE 106 mmol/L (98-107); GLUCOSE 118 mg/dL (75-110); POTASSIUM 3.8 mmol/L (3.6-5.0); SODIUM 139.6 mmol/L (137-145)
--- NOTE | 2019-05-01 10:45 | ER Document Report ---
ED General - General Chief Complaint: Leg Pain Stated Complaint: LEG PAIN Time Seen by Provider: 05/01/19 09:13 Mode of Arrival: Ambulatory Notes: Patient is a 38-year-old female presenting to the emergency department with complaints of left leg pain and swelling as well is a left upper arm tightness, pain and intermittent tingling. She reports that she was seen here for the same complaints 3 days ago and had a negative work-up including cardiac enzymes and venous Doppler. She reports the pain and swelling in her leg has actually improved. She has never had a DVT or PE in her past. She currently denies any chest pain but states that over the last few days she has had intermittent left- sided chest pressure. She denies any fevers or recent illness, dyspnea on exertion, shortness of breath, chest pain, abdominal pain, nausea/vomiting/diarrhea/constipation, urinary symptoms, no abnormal vaginal discharge. No other complaints TRAVEL OUTSIDE OF THE [place] IN LAST 30 DAYS: No - Related Data Allergies/Adverse Reactions: No Known Allergies Allergy (Verified 05/01/19 08:19) Past Medical History - General Information source: Patient - Social History Smoking Status: Current Every Day Smoker Frequency of alcohol use: Social Drug Abuse: None Family History: CAD, DM, Hypertension Patient has suicidal ideation: No Patient has homicidal ideation: No - Past Medical History Cardiac Medical History: Reports: Hx Hypertension Renal/ Medical History: Denies: Hx Peritoneal Dialysis Past Surgical History: Reports: Hx Orthopedic Surgery - Immunizations Hx Diphtheria, Pertussis, Tetanus Vaccination: Yes Review of Systems - Review of Systems Constitutional: See HPI EENT: No symptoms reported Cardiovascular: See HPI Respiratory: See HPI Gastrointestinal: See HPI Genitourinary: See HPI Female Genitourinary: See HPI Musculoskeletal: No symptoms reported Skin: No symptoms reported Hematologic/Lymphatic: No symptoms reported Neurological/Psychological: See HPI Physical Exam - Vital signs Vitals: Temp Pulse Resp BP Pulse Ox 98.4 F 85 18 153/89 H 95 05/01/19 08:19 05/01/19 08:19 05/01/19 08:19 05/01/19 08:05/01/19 08:19 - Notes Notes: PHYSICAL EXAMINATION: Reviewed vital signs and charting by RN GENERAL: Alert, interacts well. No acute distress. HEAD: Normocephalic, atraumatic. EYES: Pupils equal and round. Extraocular movements intact. ENT: Oral mucosa moist, tongue midline. NECK: Full range of motion. Trachea midline. LUNGS: Clear to auscultation bilaterally, no wheezes, rales, or rhonchi. No respiratory distress. HEART: Regular rate and rhythm. No murmur ABDOMEN: soft, non-tender. No distention. Bowel sounds present EXTREMITIES: Moves all 4 extremities spontaneously. No edema, No cyanosis. BACK: Right sided subscapular tenderness to palpation with inducible radiculopathy PSYCH: Normal affect, normal mood. SKIN: Warm, dry, normal turgor. No rashes or lesions noted. Course - Re-evaluation Re-evalutation: 05/01/19 10:42 Generally well-appearing with a negative cardiac work-up 3 days ago. Lab work all within normal limits, troponin negative. Chest x-ray did not show any abnormal findings, no cardiomegaly, no pulmonary infiltrate. Patient symptoms most likely musculoskeletal in nature I have very low suspicion for DVT as she had a negative venous Doppler 3 days ago in her left lower extremity. Her left upper extremity symptoms are most consistent with musculoskeletal strain and I do not intend to perform Doppler study. Patient is PERC negative. - Vital Signs Vital signs: Temp Pulse Resp BP Pulse Ox 98.4 F 85 18 153/89 H 95 05/01/19 08:19 05/01/19 08:19 05/01/19 08:19 05/01/19 08:19 05/01/19 08:19 - Laboratory Result Diagrams: 05/01/19 09:25 05/01/19 09:25 Laboratory results interpreted by me: 05/01/19 05/01/19 09:25 09:25 MCH 26.6 L RDW 14.6 H Glucose 118 H Discharge - Discharge Clinical Impression: Numbness and tingling in left arm, Left leg swelling Condition: Good Disposition: HOME, SELF-CARE Additional Instructions: You are seen in the emergency department this morning for left arm pain and left lower leg swelling. The left arm numbness and tingling is most likely due to a muscle strain that is causing inflammation and compressing on your nerves given you the symptoms. Because you sleep on your left side this could explain symptoms. Your blood work was all within normal limits and your chest x-ray was normal. You can take Motrin 600 mill grams every 6 hours with food or milk for the inflammation and/or Tylenol 1000 mg every 6 hours for pain. If you develop fever, worsening swelling in your left arm with pain with passive movement, acute shortness of breath or chest pain, or you have any other concerning symptoms please merely return to the emergency department.
[2019-05-01] MEDS ORDERED: IBUPROFEN 600 MG TABLET PO ONE (10:46)
[2019-05-01 11:05] VITALS: BP 147/82
--- NOTE | 2019-05-01 12:10 | EKG REPORT ---
SEVERITY:- BORDERLINE ECG - SINUS RHYTHM BORDERLINE T WAVE ABNORMALITIES : Confirmed by: Monika Rutledge MD 01-May-2019 12:09:55
== END 2019-05-01 11:05 | disposition home or self-care (01) ==
LOC: ER 08:18
DX: R20.0 Anesthesia of skin (principal); R22.42 Localized swelling, mass and lump, left lower limb; M79.605 Pain in left leg; I10 Essential (primary) hypertension; F17.200 Nicotine dependence, unspecified, uncomplicated
CPT/HCPCS: 93005; 99284; 36415; 85025; 80053; 84484; 71045; 93010; J3490

== ENCOUNTER 2020-04-30 12:16 | Emergency (ER) | payer MEDICAID ==
--- NOTE | 2020-04-30 12:59 | ER Document Report ---
ED Medical Screen (RME) - General Chief Complaint: Leg Pain Stated Complaint: LEFT SIDE PAIN Time Seen by Provider: 04/30/20 12:46 Mode of Arrival: Wheelchair Notes: HPI; 39-year-old female presents to the emergency room complaining of left-sided headache, left-sided chest pain, left leg pain for the past few weeks. Patient also states she started been suicidal last night by overdosing on crack cocaine. Patient states she is never overdosed in the past. Currently denies any suicidal homicidal ideation. PE: Alert and oriented x3. Moderate distress noted. Tearful in triage. Lungs: Clear to auscultation without rales, rhonchi, wheezes. Heart: Regular rate and rhythm without murmurs, rubs, gallops. I have greeted and performed a rapid initial assessment of this patient. A comprehensive ED assessment and evaluation of the patient, analysis of test results and completion of the medical decision making process will be conducted by additional ED providers. I have specifically instructed the patient or family members with the patient to immediately return to any nursing staff should anything change in the patient's condition or with their chief complaint. TRAVEL OUTSIDE OF THE [place] IN LAST 30 DAYS: No - Related Data Allergies/Adverse Reactions: No Known Allergies Allergy (Verified 04/30/20 12:46) Past Medical History - Past Medical History Cardiac Medical History: Reports: Hx Hypertension Renal/ Medical History: Denies: Hx Peritoneal Dialysis Past Surgical History: Reports: Hx Orthopedic Surgery - Immunizations Hx Diphtheria, Pertussis, Tetanus Vaccination: Yes Physical Exam - Vital signs Vitals: Temp Pulse Resp BP Pulse Ox 99.2 F 98 18 129/81 H 97 04/30/20 12:04/30/20 12:04/30/20 12:04/30/20 12:04/30/20 12:20 Course - Vital Signs Vital signs: Temp Pulse Resp BP Pulse Ox 99.2 F 98 18 129/81 H 97 04/30/20 12:20 04/30/20 12:20 04/30/20 12:20 04/30/20 12:04/30/20 12:20
--- NOTE | 2020-04-30 13:28 | RADIOLOGY REPORT (SQ) ---
EXAM DESCRIPTION: CT HEAD WITHOUT IMAGES COMPLETED DATE/TIME: 04/30/2020 1:15 pm REASON FOR STUDY: headache COMPARISON: 11/30/2018 TECHNIQUE: Axial images acquired through the brain without intravenous contrast. Images reviewed wit h bone, brain and subdural windows. Images stored on PACS. All CT scanners at this facility use dose modulation, iterative reconstruction, and/or weight based d osing when appropriate to reduce radiation dose to as low as reasonably achievable (ALARA). [facility]: Dose Right [facility]: CareDose [facility]: Dose Right [facility]: Teradose 4D [facility]: Smart [employer] RADIATION DOSE: CT Rad equipment meets quality standard of care and radiation dose reduction techniq ues were employed. CTDIvol: 53.2 mGy. DLP: 964 mGy-cm.. LIMITATIONS: None. FINDINGS: VENTRICLES: Normal size and contour. CEREBRUM: No masses. No hemorrhage. No midline shift. Age appropriate white matter. No evidence for a cute infarction. CEREBELLUM: No masses. No hemorrhage. No alteration of density. No evidence for acute infarction. EXTRA-AXIAL SPACES: No fluid collections. ORBITS AND GLOBE: No intra- or extraconal masses. Normal contour of globe without masses. CALVARIUM: No fracture. PARANASAL SINUSES: No fluid or mucosal thickening. SOFT TISSUES: No mass or hematoma. OTHER: No other significant finding. IMPRESSION: NO ACUTE INTRACRANIAL FINDINGS. EVIDENCE OF ACUTE STROKE: NO. TECHNICAL DOCUMENTATION: JOB ID: [id number]-72 Quality ID # [id number]: Final reports with documentation of one or more dose reduction techniques (e.g., Au tomated exposure control, adjustment of the mA and/or kV according to patient size, use of iterative reconstruction technique) 2010 [employer]- All Rights Reserved Reading location - IP/workstation name: [email or web address]
--- NOTE | 2020-04-30 13:41 | RADIOLOGY REPORT (SQ) ---
EXAM DESCRIPTION: CHEST 2 VIEWS IMAGES COMPLETED DATE/TIME: 04/30/2020 1:17 pm REASON FOR STUDY: cough COMPARISON: 05/01/2019 EXAM PARAMETERS: NUMBER OF VIEWS: two views TECHNIQUE: Digital Frontal and Lateral radiographic views of the chest acquired. RADIATION DOSE: NA LIMITATIONS: none FINDINGS: LUNGS AND PLEURA: No opacities, masses or pneumothorax. No pleural effusion. MEDIASTINUM AND HILAR STRUCTURES: No masses or contour abnormalities. HEART AND VASCULAR STRUCTURES: Heart normal size. No evidence for failure. BONES: No acute findings. HARDWARE: None in the chest. OTHER: No other significant finding. IMPRESSION: NO ACUTE RADIOGRAPHIC FINDING IN THE CHEST. TECHNICAL DOCUMENTATION: JOB ID: [id number] 2010 [employer]- All Rights Reserved Reading location - IP/workstation name: [email or web address]
[2020-04-30 14:02] LABS: ABSOLUTE BASOPHILS # (AUTO) 0.1 10^3/uL (0.0-0.2); ABSOLUTE LYMPHOCYTES (AUTO) 1.4 10^3/uL (0.5-4.7); ABSOLUTE MONOCYTES (AUTO) 0.6 10^3/uL (0.1-1.4); ABSOLUTE NEUT (AUTO) 6.8 10^3/uL (1.7-8.2); BASOPHILS % (AUTO) 0.6 % (0-2); EOSINOPHILS % (AUTO) 0.1 % (0-6); HEMATOCRIT 43.3 % (36.0-47.0); HEMOGLOBIN 14.6 g/dL (12.0-15.5); LYMPHOCYTES % (AUTO) 15.7 % (13-45); MEAN CORPUSCULAR HEMOGLOBIN 27.9 pg (27.0-33.4); MEAN CORPUSCULAR HGB CONC 33.7 g/dL (32.0-36.0); MEAN CORPUSCULAR VOLUME 83 fl (80-97); MONOCYTES % (AUTO) 6.5 % (3-13); PLATELET COUNT 317 10^3/uL (150-450); RED BLOOD COUNT 5.23 10^6/uL (3.72-5.28); RED CELL DISTRIBUTION WIDTH 14.9 % (11.5-14.0); SEGMENTED NEUTROPHILS % (AUTO) 77.1 % (42-78); TOTAL CELLS COUNTED % (AUTO) 100 %; WHITE BLOOD COUNT 8.8 10^3/uL (4.0-10.5)
[2020-04-30 14:03] LABS: ALBUMIN 3.9 g/dL (3.5-5.0); ALKALINE PHOSPHATASE 67 U/L (38-126); ANION GAP 5 (5-19); ASPARTATE AMINO TRANSFERASE 23 U/L (14-36); BILIRUBIN,TOTAL 0.4 mg/dL (0.2-1.3); BLOOD UREA NITROGEN 8 mg/dL (7-20); CALCIUM 9.1 mg/dL (8.4-10.2); CARBON DIOXIDE 28 mmol/L (22-30); CHLORIDE 105 mmol/L (98-107); GLUCOSE 90 mg/dL (75-110); POTASSIUM 4.1 mmol/L (3.6-5.0); TOTAL PROTEIN 7.2 g/dL (6.3-8.2)
[2020-04-30 14:04] LABS: APPEARANCE,URINE CLEAR; BILIRUBIN,URINE NEGATIVE (NEGATIVE); COLOR,URINE YELLOW; GLUCOSE, URINE NEGATIVE (NEGATIVE); KETONES,URINE NEGATIVE (NEGATIVE); LEUKOCYTE ESTERASE,URINE NEGATIVE (NEGATIVE); NITRITE,URINE NEGATIVE (NEGATIVE); PROTEIN,URINE 30 mg/dL (NEGATIVE); URINE SPECIFIC GRAVITY 1.019; UROBILINOGEN,URINE NEGATIVE mg/dL (<2.0)
[2020-04-30 14:07] LABS: ACETAMINOPHEN < 10 ug/mL (10-30); ALCOHOL < 10 mg/dL (NONE DETECTED); SALICYLATE < 1.0 mg/dL (2.0-20.0)
[2020-04-30 14:16] LABS: URINE AMPHETAMINES SCREEN NEGATIVE; URINE BARBITURATES SCREEN NEGATIVE; URINE BENZODIAZEPINES SCREEN NEGATIVE; URINE MARIJUANA (THC) SCREEN NEGATIVE; URINE METHADONE SCREEN NEGATIVE; URINE PHENCYCLIDINE SCREEN NEGATIVE
[2020-04-30 14:17] LABS: URINE COCAINE SCREEN UNCONFIRMED POSITIVE
--- NOTE | 2020-04-30 15:16 | EKG REPORT ---
SEVERITY:- BORDERLINE ECG - SINUS RHYTHM PROBABLE LEFT ATRIAL ABNORMALITY : Confirmed by: Kip Bermudez MD 30-Apr-2020 15:15:26
--- NOTE | 2020-04-30 16:15 | RADIOLOGY REPORT (SQ) ---
EXAM DESCRIPTION: VENOUS UNILATERAL LOWER IMAGES COMPLETED DATE/TIME: 04/30/2020 4:02 pm REASON FOR STUDY: left leg swelling COMPARISON: None. TECHNIQUE: Dynamic and static duran scale and color images acquired of the left leg venous system. Se lected spectral images acquired with additional compression and augmentation maneuvers. The contralat eral common femoral vein and saphenofemoral junction were also imaged. Images stored on PACS. LIMITATIONS: The peroneal vein was not visualized due to body habitus. FINDINGS: COMMON FEMORAL: Normal phasicity, compression and augmentation. No visualized echogenic ma terial on duran scale. No defects on color images. FEMORAL: Normal compression and augmentation. No visualized echogenic material on duran scale. No defe cts on color images. POPLITEAL: Normal compression, augmentation. No visualized echogenic material on duran scale. No defec ts on color images. CALF VESSELS: Normal compression, augmentation. No visualized echogenic material on duran scale. No de fects on color images. GSV and SSV: Normal compression, augmentation. No visualized echogenic material on udran scale. No def ects on color images. ANY DEEP VENOUS INSUFFICIENCY: Not evaluated. ANY EVIDENCE OF POPLITEAL CYST: No. OTHER: No other significant finding. CONTRALATERAL COMMON FEMORAL VEIN AND SAPHENOFEMORAL JUNCTION: Normal phasicity, compression and augmentation. No visualized echogenic material on duran scale. No de fects on color images. IMPRESSION: NO EVIDENCE OF DVT OR SVT IN THE LEFT LEG. TECHNICAL DOCUMENTATION: JOB ID: [id number] 2010 [employer]- All Rights Reserved Reading location - IP/workstation name: [email or web address]
--- NOTE | 2020-04-30 17:05 | ER Document Report ---
ED Psych Disorder / Suicide - General Chief Complaint: Psych Problem Stated Complaint: LEFT SIDE PAIN Time Seen by Provider: 04/30/20 12:46 Mode of Arrival: Wheelchair Notes: Patient is a 39-year-old female who presents to the emergency department with multiple complaints. Patient states that she has left-sided pain all over. Patient also states that she feels suicidal. Yesterday she attempted to snort cocaine to kill herself. Patient states that she tried snorting it. She also states that she has left lateral chest pain that started last night. Patient reports vague symptoms. Denies any past medical history. She does not take any medications. TRAVEL OUTSIDE OF THE [place] IN LAST 30 DAYS: No - Related Data Allergies/Adverse Reactions: No Known Allergies Allergy (Verified 04/30/20 12:46) Past Medical History - General Information source: Patient - Social History Smoking Status: Current Every Day Smoker Chew tobacco use (# tins/day): No Frequency of alcohol use: Social Family History: CAD, DM, Hypertension Patient has homicidal ideation: No - Past Medical History Cardiac Medical History: Reports: Hx Hypertension Renal/ Medical History: Denies: Hx Peritoneal Dialysis Past Surgical History: Reports: Hx Orthopedic Surgery - Immunizations Hx Diphtheria, Pertussis, Tetanus Vaccination: Yes Review of Systems - Review of Systems Notes: REVIEW OF SYSTEMS: CONSTITUTIONAL : Denies recent illness. Denies recent unintentional weight loss. Denies fever, chills, or sweats. EENT: Denies eye, ear, throat, or mouth pain, discharge, or symptoms. Denies nasal or sinus congestion. CARDIOVASCULAR: See HPI. RESPIRATORY: Denies shortness of breath, cough, congestion, difficulty breathing, or wheezing. GASTROINTESTINAL: Denies nausea, vomiting, and diarrhea. Denies abdominal pain. Denies constipation. GENITOURINARY: Denies difficulty urinating, burning, blood in urine, urgency or frequency. MUSCULOSKELETAL: Denies neck and back pain. Denies joint pain or swelling. SKIN: Denies rash, itchiness, or lesions HEMATOLOGIC : Denies easy bruising or bleeding. LYMPHATIC: Denies swollen, painful, enlarged glands. NEUROLOGICAL: Denies no numbness or tingling denies weakness. Denies headache. Denies altered mental status. Denies alteration in speech. PSYCHIATRIC: See HPI. All other systems reviewed and negative. Physical Exam - Vital signs Vitals: Temp Pulse Resp BP Pulse Ox 99.2 F 98 18 129/81 H 97 04/30/20 12:20 04/30/20 12:20 04/30/20 12:20 04/30/20 12:20 04/30/20 12:20 - Notes Notes: PHYSICAL EXAMINATION: GENERAL: Appears well, obese, no acute distress. HEAD: Normocephalic, atraumatic. EYES: PERRL, conjunctiva normal, all extraocular movements intact, sclera nonicteric ENT: Moist mucous membranes. NECK: Supple, no noticeable swelling, redness, rash. Normal range of motion. LUNGS: Equal breath sounds bilaterally and clear to auscultation. No wheezes rales or rhonchi. CARDIOVASCULAR: S1-S2, regular rate, regular rhythm. Radial pulses 2+, normal. ABDOMEN: Normoactive bowel sounds. Soft, nontender, no guarding, no rebound tenderness, and no masses palpated. EXTREMITIES: Normal strength and range of motion, no pitting or edema. No cyanosis. NEUROLOGICAL: Moves all extremities upon command. Strength 5/5 in all extremities. PSYCH: Normal mood, normal affect. SKIN: Warm, dry. No rash, lesions, ulcerations noted. Normal skin turgor. Course - Re-evaluation Re-evalutation: 04/30/20 19:49 Hematology is unremarkable. Chemistries are also unremarkable. hCG is negat mark. Troponin is also negative. CK is 177. Urinalysis shows small amount of protein in her urine. Venous Doppler study is unremarkable. CT of the head is unremarkable and chest x-ray is normal. EKG is unremarkable Patient is resting comfortably in bed. Urine toxicology is positive for cocaine, patient admits to this use upon initial assessment. Salicylates, acetaminophen, and serum alcohol are negative. At this time, the patient is medically clear for mental health evaluation by Dr. Chaparro and staff. - Vital Signs Vital signs: Temp Pulse Resp BP Pulse Ox 98.4 F 76 18 117/77 96 04/30/20 14:56 04/30/20 14:56 04/30/20 12:20 04/30/20 14:56 04/30/20 14:56 - Laboratory Result Diagrams: 04/30/20 13:32 04/30/20 13:32 Laboratory results interpreted by me: 04/30/20 04/30/20 04/30/20 13:32 13:32 13:32 RDW 14.9 H Creatine Kinase Urine Protein 30 H Salicylates < 1.0 L Acetaminophen < 10 L 04/30/20 13:32 RDW Creatine Kinase 177 H Urine Protein Salicylates Acetaminophen - EKG Interpretation by Me Additional EKG results interpreted by me: 04/30/20 19:52 Sinus rhythm. Rate 82. SC 144; QRS 80; QT 396; QTc 463. No ST elevations or depressions noted. No acute change from previous EKG done on 05/01/2019. Discharge - Discharge Clinical Impression: Suicidal ideation, Cocaine abuse Condition: Stable Disposition: PSYCH HOSP/UNIT
--- NOTE | 2020-04-30 21:23 | RADIOLOGY REPORT (SQ) ---
3 VIEWS OF LEFT ANKLE HISTORY: Ankle pain post trauma. COMPARISON: None. FINDINGS: The ankle mortise is preserved on these nonstress views. No acute fracture is identified. The surrounding soft tissues are swollen. No foreign bodies. IMPRESSION: Ankle soft tissue swelling, without acute fracture seen.
[2020-04-30] MEDS ORDERED: ACETAMINOPHEN 325 MG TABLET PO ONE (21:54)
[2020-05-01 03:05] VITALS: BP 109/63
--- NOTE | 2020-05-02 21:39 | PSYCHOLOGICAL NOTE ---
Psych Note - Psych Note Date seen by psych provider: 04/30/20 Time seen by psych provider: 16:49 - [id number] initial attempt. Sister collateral from [id number], spoke to her at 2033 and then again after pateint consulted with her about linkage to voluntary detox/treatment. [id number] second attempt. Psych Note: Presenting Problem: Patient is a 39 year old female who presented to the [facility] ED today via POV (patient later noted a cab) for medical complaint of left lower extremity pain (swell, then go down often over the past 2 days), became tearful then reported suicidal ideation and overdose attempt last evening via crack trying to make herself have a heart attack. Patient admitted to medical staff she has been using cocaine for the past 1.5 years (UDS positive for cocaine). She reported stress surrounding being a single mom (15 year old son, 7 year old daughter) which she said lived with her but were with grandmother. Patient initially was tired and difficult to wake then keep awake. Her eyes were blood shot and puffy. She denied current suicidal ideation and stated she was glad she was alive and the crack did not kill her last night. She denied being linked to a provider currently. She said she had mental health services "a long time ago." Patient denied previous mental health hospitalizations. Later evening she was able to stay awake. She was concerned about her lower extremity and the pain/swelling she's been having regardless of medical procedures already conducted (during this time she was irritable). The Attending ED Physician added on an X ray. She again reported the same information from earlier evaluation attempt. When informed of discharge she started crying. She stated she does not want to go back to her house because "it's too easy to access cocaine there, but I don't want to be alone." She denied her children being home last evening. She stated she has burnt bridged with parents so cannot stay with them and they have her children due to the drug use. Contacted [facility] at 2046. Spoke to Melvin. She stated they had 2 female beds. Informed her would likely be sending voluntary referral. Informed patient of bed availability and it being a voluntary inpatient facility where individuals are kept for 3-5 days. When asked if could make linkage referral patient said she wanted to talk with her sister, was allowed to, and after gave verbal consent to provide referral/linkage to [facility]. Patient was alert and oriented to self, person, place, time and situation. Mood was labile (depressed, irritable) with tearful.crying affect. She denied current suicidal and homicidal ideation, admitted to trying to cause herself a heart attack last evening via crack overdose but today is glad to be alive. Patient did not appear to be responding to internal stimuli as evidenced by fair eye contact and answering questions appropriately when addressed. Thought processes were slowed. Conversational speech was within normal limits for rate, tone and prosody. Intellectual abilities are estimated to be average. Insight, judgment and impulse control were fair as evidenced by being open to treatment. Collateral: From [id number] obtained collateral from patient's sister Keli ([phone]). Patient provided contact information. Sister stated she spoke with patient prior to her coming to ED. She stated patient didn't tell her what happened last night but told her she was trying to kill herself. Sister stated she told patient to go to the hospital. Sister denied patient trying to hurt/harm/kill self in the past. She denied patient being hospitalized for mental health previously. She denied family history of mental health. She noted stress to be being a single parent and the drug use. At 2033 informed sister of plan of care to discharge with multiple resources. Then spoke to sister again after patient consulted with her regarding linkage/referral to [facility]. Clinical Presentation: Medical complaint of lower extremity swelling and going down multiple times over past couple days Suicidal Ideation Overdose attempt via tried to give self heart attack via crack Diagnosis: Cocaine Use Disorder, Severe Psychosocial stress Depression Impression/Plan: Patient is cleared from acute psychiatric services. She denied current suicidal and homicidal ideation, admitted to overdose attempt via crack last night to give self heart attack but stated she was glad to be alive today. No observed psychosis given she was able to carry on linear dialogue conversation and express self/wants/needs. At first provided the outpatient mental health resource sheet which highlighted both [facility] numbers for crisis/talk therapy/linkage to other services and supports, documented walk in times for [facility] and [facility] and provided contact information for [facility]. After calling [facility], finding out they had 2 female beds, and patient consulted with her sister patient gave verbal consent to provide linkage and referral to [facility]. Faxed referral packet and provided ED Charge Nurse number for call back. Sister aware of plan of care. Consulted with Dr. Chaparro regarding the management and care of patient. ED Physician in agreement with recommendations.
== END 2020-05-01 02:50 | disposition home or self-care (01) ==
LOC: ER 12:16
DX: R45.851 Suicidal ideations (principal); F14.10 Cocaine abuse, uncomplicated; M79.10 Myalgia, unspecified site; R07.9 Chest pain, unspecified; F17.200 Nicotine dependence, unspecified, uncomplicated; I10 Essential (primary) hypertension
CPT/HCPCS: 93005; 99284; 36415; 80307 ×4; 82550; 84703; 85025; 80053; 81001; 84484; 93971; 73610; 71046; 70450; 93010; J3490